=== PATIENT | male | born 1960 | race African-American/Black ===

== ENCOUNTER 2017-11-02 21:38 | Emergency (ER) | payer OTHER ==
[~2017-11-02] VITALS: Ht 175.3 cm; Wt 74.8 kg
[2017-11-03] MEDS ORDERED: SODIUM CHLORIDE 0.9% 1,000 ML IV ONE (00:23)
[2017-11-03 00:47] LABS: HEMATOCRIT. 40.4 % (42.0-52.0); HEMOGLOBIN. 13.5 g/dL (14.0-18.0); MEAN CORPUSCULAR HEMOGLOBIN 29.3 pg (28.0-32.0); MEAN CORPUSCULAR VOLUME 87.6 fL (80.0-94.0); MEAN PLATELET VOLUME 6.9 fl (7.4-10.4); PLATELET 366 x1000/uL (130-400); RED BLOOD CELL COUNT 4.62 mill/uL (4.7-6.1); RED CELL DISTRIBUTION WIDTH 14.5 % (11.6-14.6)
[2017-11-03 00:51] LABS: CLARITY URINE CLEAR (CLEAR); COLOR URINE YELLOW (YELLOW); KETONES URINE TRACE (NEGATIVE); LEUKOCYTE ESTERASE URINE NEGATIVE (NEGATIVE); NITRITE URINE NEGATIVE (NEGATIVE); OCCULT BLOOD URINE 3+ (NEGATIVE); PROTEIN URINE 2+ (NEGATIVE); SPECIFIC GRAVITY URINE 1.018 (1.005-1.030)
[2017-11-03 00:52] LABS: INR 1.2; PROTHROMBIN TIME 12.3 sec (9.4-11.6)
[2017-11-03 01:02] LABS: CHLORIDE 99 mEq/L (98-107); ETHANOL BLOOD < 10 mg/dL
[2017-11-03 01:28] LABS: *AMPHETAMINES SCREEN URINE NEGATIVE (NEGATIVE); *BARBITURATES SCREEN URINE NEGATIVE (NEGATIVE); *BENZODIAZEPINES SCREEN URINE NEGATIVE (NEGATIVE); *COCAINE SCREEN URINE PRESUMTIVE POSITIVE (NEGATIVE); CANNABINOID URINE SCREEN NEGATIVE (NEGATIVE); METHADONE URINE SCREEN NEGATIVE (NEGATIVE); OPIATES URINE SCREEN NEGATIVE (NEGATIVE); PHENCYCLIDINE URINE SCREEN NEGATIVE (NEGATIVE)
[2017-11-03 02:29] LABS: PLATELET ESTIMATE NORMAL
[2017-11-03] MEDS ORDERED: MAGNESIUM 1 G PREMIX 100 ML IV ONE (03:15)
[2017-11-03] MEDS ORDERED: POTASSIUM CHLORIDE 20MEQ/PACKET PO SCH (03:45)
[2017-11-03 04:00] VITALS: BP 158/85
== END 2017-11-03 07:48 | disposition home or self-care (01) ==
LOC: ER 21:38
DX: S01.01XA Laceration without foreign body of scalp, initial encounter (principal); F14.10 Cocaine abuse, uncomplicated; I10 Essential (primary) hypertension; E87.6 Hypokalemia; R53.83 Other fatigue; G89.29 Other chronic pain; M54.9 Dorsalgia, unspecified; F17.210 Nicotine dependence, cigarettes, uncomplicated; W01.0XXA Fall on same level from slipping, tripping and stumbling without subsequent striking against object, initial encounter; Y93.01 Activity, walking, marching and hiking; Y92.410 Unspecified street and highway as the place of occurrence of the external cause
CPT/HCPCS: 12001; 36415; 70450; 71045; 80053; 80305; 80307; 80329; 81001; 82962; 85025; 85610; 93005; 99285; G0482; J7030; Z7610

== ENCOUNTER 2017-11-03 09:31 | Inpatient (IN) | payer OTHER ==
[~2017-11-03] VITALS: Ht 175.3 cm; Wt 63.7 kg
[2017-11-03] MEDS ORDERED: SODIUM CHLORIDE 0.9% 1,000 ML IV ONE (11:00)
[2017-11-03] MEDS ORDERED: ASPIRIN 81MG TABLET PO STA (11:55)
[2017-11-03 12:11] LABS: BASOPHILS % 0.4 % (0.0-2.0); HEMOGLOBIN. 14.4 g/dL (14.0-18.0); LYMPHOCYTES % 7.2 % (20.0-50.0); MEAN CORPUSCULAR HEMOGLOBIN 29.1 pg (28.0-32.0); MEAN CORPUSCULAR VOLUME 88.7 fL (80.0-94.0); MEAN PLATELET VOLUME 7.3 fl (7.4-10.4); MONOCYTES % 10.7 % (2.0-8.0); NEUTROPHILS % 81.7 % (40.0-76.0); PLATELET 331 x1000/uL (130-400); RED BLOOD CELL COUNT 4.96 mill/uL (4.7-6.1); RED CELL DISTRIBUTION WIDTH 14.6 % (11.6-14.6)
[2017-11-03 12:16] LABS: INR 1.2; PARTIAL THROMBOPLASTIN TIME 29.9 sec (23.4-31.0); PROTHROMBIN TIME 12.2 sec (9.4-11.6)
[2017-11-03 12:28] LABS: CARBON DIOXIDE 23 mEq/L (21-32); CHLORIDE 102 mEq/L (98-107)
[2017-11-03] MEDS ORDERED: MAGNESIUM/ALUMINUM HYDROXIDE/SIMETHICONE 30ML UDC PO PRN (13:00)
[2017-11-03] MEDS ORDERED: NA PHOS,M-B/NA PHOS,DI-BA ENEMA 118ML PR PRN (13:00)
[2017-11-03] MEDS ORDERED: NITROGLYCERIN 0.4MG TABLET SL SL PRN (13:00)
[2017-11-03] MEDS ORDERED: KETOROLAC 15MG/ML VIAL IV PRN (13:00)
[2017-11-03] MEDS ORDERED: ONDANSETRON HCL 4MG/2ML VIAL IV PRN (13:00)
[2017-11-03] MEDS ORDERED: DOCUSATE SODIUM 100MG CAPSULE PO PRN (13:00)
[2017-11-03] MEDS ORDERED: GUAIFENESIN 200MG/10ML SUGAR FREE UDC PO PRN (13:00)
[2017-11-03] MEDS ORDERED: ACETAMINOPHEN 325MG TABLET PO PRN (13:00)
[2017-11-03] MEDS ORDERED: LORAZEPAM 0.5MG TABLET PO PRN (13:00)
[2017-11-03 15:05] LABS: TROPONIN I 0.27 ng/mL (0.00-0.04)
[2017-11-03 15:12] LABS: CREATINE KINASE MB FRACTION 7.2 ng/mL (0.5-3.6)
[2017-11-03 16:30] VITALS: BP 174/102
[2017-11-03] MEDS: CLONIDINE 0.1MG TABLET PO PRN (16:57)
[2017-11-03 17:01] VITALS: BP 174/102
[2017-11-03] MEDS: ENOXAPARIN 40MG/0.4ML SYR SUBCUT SCH (17:55)
[2017-11-03] MEDS ORDERED: INFLUENZA VIRUS VACCINE 0.5ML SYR IM ONE (18:00)
[2017-11-03 19:36] LABS: *AMPHETAMINES SCREEN URINE NEGATIVE (NEGATIVE); *BARBITURATES SCREEN URINE NEGATIVE (NEGATIVE); *BENZODIAZEPINES SCREEN URINE NEGATIVE (NEGATIVE); *COCAINE SCREEN URINE PRESUMTIVE POSITIVE (NEGATIVE); CANNABINOID URINE SCREEN NEGATIVE (NEGATIVE); METHADONE URINE SCREEN NEGATIVE (NEGATIVE); OPIATES URINE SCREEN NEGATIVE (NEGATIVE); PHENCYCLIDINE URINE SCREEN NEGATIVE (NEGATIVE)
[2017-11-03 20:00] VITALS: BP 142/88
[2017-11-03] MEDS ORDERED: ZOLPIDEM TARTRATE 5MG TABLET PO PRN (21:00)
[2017-11-03] MEDS: LISINOPRIL 20MG TABLET PO SCH (21:08)
[2017-11-03] MEDS: FAMOTIDINE 20MG/2ML VIAL IV SCH (21:08)
[2017-11-03 23:18] LABS: TROPONIN I 0.17 ng/mL (0.00-0.04)
[2017-11-04] VITALS: BP 163/97
[2017-11-04] MEDS: CLONIDINE 0.1MG TABLET PO PRN (00:38)
[2017-11-04 04:00] VITALS: BP 154/89
[2017-11-04 08:00] VITALS: BP 153/90
[2017-11-04] MEDS ORDERED: ASPIRIN 325MG EC TABLET PO SCH (09:00)
[2017-11-04] MEDS: LISINOPRIL 20MG TABLET PO SCH ×2 (09:24→22:15)
[2017-11-04] MEDS: AMLODIPINE 10MG TABLET PO SCH (09:25)
[2017-11-04 12:00] VITALS: BP 148/94
[2017-11-04] MEDS: CLOPIDOGREL 75MG TABLET PO SCH (12:05)
[2017-11-04] MEDS: BLOOD SUGAR DIAGNOSTIC STRIP TEST SCH ×3 (12:05→21:00)
[2017-11-04 12:12] LABS: BG BASE EXCESS 1.9 mmol/L (-2.0-2.0); BG DEOXYHEMOGLOBIN 5.5 % (0.0-5.0); BG FRACTION INSPIRED OXYGEN 21; BG HCO3 ACT 24.9 mmol/L (22.0-26.0); BG METHEMOGLOBIN 0.3 % (0.0-1.5); BG OXYGEN SATURATION 94.5 % (92.0-98.5); BG OXYHEMOGLOBIN 94.2 % (94.0-97.0); BG PCO2 34.1 mmHg (35.0-45.0); BG PH 7.482 (7.350-7.450); BG PO2 69.3 mmHg (75.0-100.0); BG SAMPLE SITE RIGHT RADIAL; BG TOTAL HEMOGLOBIN 13.7 g/dL (12.0-18.0); BG VENT MODE ROOM AIR
[2017-11-04 16:00] VITALS: BP 143/97
[2017-11-04] MEDS: ENOXAPARIN 40MG/0.4ML SYR SUBCUT SCH (17:27)
[2017-11-04 20:00] VITALS: BP 151/95
[2017-11-04] MEDS ORDERED: ATORVASTATIN CALCIUM 20MG TABLET PO SCH (21:00)
[2017-11-04] MEDS: FAMOTIDINE 20MG/2ML VIAL IV SCH (22:15)
[2017-11-05] VITALS: BP 153/96
[2017-11-05 04:00] VITALS: BP 144/92
[2017-11-05] MEDS: BLOOD SUGAR DIAGNOSTIC STRIP TEST SCH ×2 (06:11→11:45)
[2017-11-05 08:00] VITALS: BP 156/98
[2017-11-05] MEDS: CLOPIDOGREL 75MG TABLET PO SCH (09:20)
[2017-11-05] MEDS: AMLODIPINE 10MG TABLET PO SCH (09:20)
[2017-11-05] MEDS: LISINOPRIL 20MG TABLET PO SCH (09:21)
[2017-11-05 12:00] VITALS: BP 157/89
[2017-11-05 13:35] VITALS: BP 157/89
== END 2017-11-05 17:19 | disposition home or self-care (01) | DRG 816 ==
LOC: ER 09:41 → 5WST 11:57 → ENRESERV 15:41
PROVIDERS: ADMIT Internal Medicine; ATTEND Internal Medicine
DX: T40.5X1A Poisoning by cocaine, accidental (unintentional), initial encounter (principal); I63.9 Cerebral infarction, unspecified; N17.0 Acute kidney failure with tubular necrosis; E44.1 Mild protein-calorie malnutrition; E78.00 Pure hypercholesterolemia, unspecified; W18.39XA Other fall on same level, initial encounter; I10 Essential (primary) hypertension; F17.210 Nicotine dependence, cigarettes, uncomplicated; F14.10 Cocaine abuse, uncomplicated; R26.2 Difficulty in walking, not elsewhere classified; Z79.82 Long term (current) use of aspirin; Z59.0 Homelessness; Y93.89 Activity, other specified; Y92.89 Other specified places as the place of occurrence of the external cause; Z79.899 Other long term (current) drug therapy; Y99.8 Other external cause status; Z68.20 Body mass index [BMI] 20.0-20.9, adult
CPT/HCPCS: 36415; 36600; 70551; 72110; 80053; 80061; 80305; 82375; 82550; 82553; 82805; 82962; 83036; 83690; 83880; 84484; 85025; 85384; 85610; 85730; 90686; 93005; 93970; 96360; 96361; 97116; 97162; 97166; 97530; 99285; J1650; J3490; J7030